=== PATIENT | male | born 1960 | race Caucasian/White ===

== ENCOUNTER 2019-08-07 13:33 | Emergency (ER) | payer OTHER ==
[~2019-08-07] VITALS: Ht 167.6 cm; Wt 103.0 kg
[2019-08-07 13:37] VITALS: Ht 167.6 cm; Wt 103.0 kg
[2019-08-07 15:53] VITALS: BP 136/88
== END 2019-08-07 16:01 | disposition home or self-care (01) ==
LOC: ED 13:33
DX: J36 Peritonsillar abscess (principal); Z88.0 Allergy status to penicillin; E11.9 Type 2 diabetes mellitus without complications
CPT/HCPCS: J7512

== ENCOUNTER 2020-04-17 17:54 | Emergency (ER) | payer OTHER ==
[~2020-04-17] VITALS: Ht 167.6 cm; Wt 103.4 kg
[2020-04-17 18:19] VITALS: Ht 167.6 cm; Wt 103.4 kg
[2020-04-17 19:02] VITALS: BP 115/83
== END 2020-04-17 19:02 | disposition home or self-care (01) ==
LOC: ED 17:54
DX: B02.9 Zoster without complications (principal); E11.9 Type 2 diabetes mellitus without complications; Z88.0 Allergy status to penicillin